=== PATIENT | male | born 1985 | race Caucasian/White ===

== ENCOUNTER 2018-06-15 16:07 | Emergency (ER) | payer BC ==
[2018-06-15] MEDS ORDERED: NA CHLORIDE 0.9% 1,000 ML ONE (16:46)
[2018-06-15] MEDS ORDERED: ONDANSETRON 4 MG/2 ML VIAL ONE (16:46)
[2018-06-15] MEDS ORDERED: NA CHLORIDE 0.9% 50 ML IV ONE (16:46)
[2018-06-15] MEDS ORDERED: DIPHENHYDRAMINE 50 MG/ML VIAL ONE (16:46)
[2018-06-15] MEDS ORDERED: METOCLOPRAMIDE 10 MG/2mL INJ ONE (16:46)
--- NOTE | 2018-06-15 16:57 | RAD REPORT ---
EXAM DESCRIPTION: CT - Head Brain Wo Cont - 06/15/2018 4:39 pm CLINICAL HISTORY: HEADACHE COMPARISON: No comparisons TECHNIQUE: All CT scans are performed using dose optimization technique as appropriate and may inclu de automated exposure control or mA/KV adjustment according to patient size. FINDINGS: No intracranial hemorrhage, hydrocephalus or extra-axial fluid collection.No areas of brai n edema or evidence of midline shift. The paranasal sinuses and mastoids are clear. The calvarium is intact. IMPRESSION: No acute intracranial abnormality.
[2018-06-15] MEDS ORDERED: KETOROLAC 30 MG/ML INJ ONE (17:18)
[2018-06-15] MEDS ORDERED: DEXAMETHASONE 10 MG/ML VIAL ONE (17:18)
--- NOTE | 2018-06-15 17:52 | ER ---
Nurse's Notes [facility] Name: Ten Oleary Age: 32 yrs Sex: Male : 1985 Arrival Date: 06/15/2018 Time: 16:08 Bed 24 Private MD: out of town, doctor Diagnosis: Headache Presentation: 06/15 16:08 Presenting complaint: Patient states: Migraine headache that started a few hours ago, sg reports sensitivity to light, has nausea as well, denies fever/diarrhea. Transition of care: patient was not received from another setting of care. Onset of symptoms was June 15, 2018. Risk Assessment: Do you want to hurt yourself or someone else? Patient reports no desire to harm self or others. Initial Sepsis Screen: Does the patient meet any 2 criteria? No. Patient's initial sepsis screen is negative. Does the patient have a suspected source of infection? No. Patient's initial sepsis screen is negative. Care prior to arrival: None. 16:08 Method Of Arrival: Ambulatory 16:08 Acuity: TERA 2 sg 16:13 Note at 2 pm today i was typing on the laptop computer at work and I had some vision sg changes in the left eye, it was like a bright light shining in the eye, super annoying but its much worse now. Triage Assessment: 16:54 Headache History:. General: Appears in no apparent distress. comfortable, Behavior is mg2 calm, cooperative. Pain: Complains of pain in head Also complains of nausea. Historical: - Allergies: 16:15 No Known Allergies; sg - Home Meds: 16:15 None [Active]; sg - PMHx: 16:15 None; sg - PSHx: 16:15 Right Hand Sx; sg - Immunization history:: Flu vaccine status is unknown. - Social history:: Smoking status: Patient/guardian denies using tobacco. - Ebola Screening: : No symptoms or risks identified at this time. Screenin:14 VAN Screening: Arm Drift: Patient shows no arm weakness. Patient is VAN negative. sg 16:39 Abuse screen: Denies threats or abuse. Denies injuries from another. Nutritional mg2 screening: No deficits noted. Tuberculosis screening: No symptoms or risk factors identified. Fall Risk IV access (20 points). Assessment: 16:37 General: Appears in no apparent distress. comfortable, Behavior is calm, cooperative. mg2 Pain: Complains of pain in head Pain does not radiate. Pain currently is 8 out of 10 on a pain scale. Quality of pain is described as aching, Pain began gradually, 2 hours ago. Neuro: Level of Consciousness is awake, alert, obeys commands, Oriented to person, place, time, situation. Neuro: Reports headache. Cardiovascular: Capillary refill < 3 seconds Patient's skin is warm and dry. Respiratory: Airway is patent Respiratory effort is even, unlabored, Respiratory pattern is regular, symmetrical. GI: Reports nausea. : No signs and/or symptoms were reported regarding the genitourinary system. EENT: No signs and/or symptoms were reported regarding the EENT system. Derm: Skin is intact, is healthy with good turgor, Skin is pink, warm \T\ dry. normal. Musculoskeletal: Circulation, motion, and sensation intact. Capillary refill < 3 seconds. 16:41 Reassessment: patient is back from ct scan. mg2 18:04 Reassessment: Patient denies pain at this time. Patient states feeling better. Patient mg2 states symptoms have improved. Vital Signs: 16:08 BP 135 / 83; Pulse 88; Resp 16; Pulse Ox 100% ; Pain 10/10; sg 17:30 BP 131 / 82; Pulse 88; Resp 18; Pulse Ox 100% on R/A; Pain 0/10; mg2 ED Course: 16:08 Patient arrived in ED. sg 16:08 Alexis Sampson PA is PHCP. cp 16:08 Foster Murguia MD is Attending Physician. cp 16:09 Triage completed. sg 16:09 Arm band placed on. sg 16:19 out of town, doctor is Private Physician. sg 16:20 Abe Morales, AILYN is Primary Nurse. mg2 16:[address] via wheelchair. ls3 16:39 CT completed. Patient tolerated procedure well. Patient moved back from CT. nj 16:40 CT Head Brain wo Cont In Process Unspecified. EDMS 16:40 Patient has correct armband on for positive identification. Pulse ox on. NIBP on. Door mg2 closed. Warm blanket given. 16:53 No provider procedures requiring assistance completed. Inserted saline lock: 20 gauge mg2 in right antecubital area, using aseptic technique. Blood collected. 18:04 IV discontinued, intact, bleeding controlled, No redness/swelling at site. Pressure mg2 dressing applied. Administered Medications: 16:50 Drug: Reglan 10 mg Route: IVP; Site: right antecubital; mg2 17:55 Follow up: Response: No adverse reaction; Marked relief of symptoms mg2 16:51 Drug: NS 0.9% 1000 ml Route: IV; Rate: 1 bolus; Site: right antecubital; mg2 17:55 Follow up: Response: No adverse reaction; Marked relief of symptoms mg2 18:05 Follow up: IV Status: Completed infusion mg2 16:51 Drug: Benadryl 25 mg Route: IVP; Site: right antecubital; mg2 17:55 Follow up: Response: No adverse reaction; Marked relief of symptoms mg2 16:51 Drug: Zofran 4 mg Route: IVP; Site: right antecubital; mg2 17:55 Follow up: Response: No adverse reaction; Marked relief of symptoms mg2 17:14 Drug: Decadron - Dexamethasone 10 mg Route: IVP; Site: right antecubital; mg2 17:55 Follow up: Response: No adverse reaction; Marked relief of symptoms mg2 17:14 Drug: TORadol - Ketorolac 15 mg Route: IVP; Site: right antecubital; mg2 17:54 Follow up: Response: No adverse reaction; Marked relief of symptoms mg2 Outcome: 17:51 Discharge ordered by . cp 18:04 Discharged to home ambulatory. mg2 18:04 Condition: stable 18:04 Discharge instructions given to patient, Instructed on discharge instructions, follow up and referral plans. medication usage, Demonstrated understanding of instructions, follow-up care, medications, Prescriptions given X 2. 18:05 Patient left the ED. mg2 Signatures: Dispatcher [employer] EDSamir Portillo RN RN sg Alexis Sampson PA PA cp Jordan, Nathan nj Gardose, Michele, RN RN mg2 Kirsty Siddiqui3 Corrections: (The following items were deleted from the chart) 16:18 16:08 Acuity: TERA 3 ana perez
--- NOTE | 2018-06-15 17:52 | EDPHYS ---
Physician Documentation [facility] Name: Ten Oleary Age: 32 yrs Sex: Male : 1985 Arrival Date: 06/15/2018 Time: 16:08 Bed 24 Private MD: out of town, doctor ED Physician Foster Murguia HPI: 06/15 16:35 This 32 yrs old Male presents to ER via Ambulatory with complaints of cp Headache < 24hrs Old, Vision Problem. 16:35 The patient complains of pain to the forehead. cp 16:35 Severity of symptoms: in the emergency department the pain a " 8" out of "10". cp 16:35 Onset: The symptoms/episode began/occurred today. Associated signs and symptoms: cp Pertinent positives: nausea, Photophobia. Headache History: Other denies history of migraines. Patient reports he was seated and working at computer when he noticed spots in vision of left eye, started having headache left front and side of head that has now progressed across front of head. Patient reports nausea and sensitivity to light. Historical: - Allergies: 16:15 No Known Allergies; sg - Home Meds: 16:15 None [Active]; sg - PMHx: 16:15 None; sg - PSHx: 16:15 Right Hand Sx; sg - Immunization history:: Flu vaccine status is unknown. - Social history:: Smoking status: Patient/guardian denies using tobacco. - Ebola Screening: : No symptoms or risks identified at this time. ROS: 16:45 Constitutional: Negative for body aches, chills, fever, poor PO intake. cp 16:45 Eyes: Positive for photophobia, Negative for discharge, redness, vision loss. cp 16:45 ENT: Negative for drainage from ear(s), ear pain, sore throat, difficulty swallowing, difficulty handling secretions. 16:45 Cardiovascular: Negative for chest pain, edema, palpitations. 16:45 Respiratory: Negative for cough, shortness of breath, wheezing. 16:45 Abdomen/GI: Positive for nausea, Negative for abdominal pain, vomiting, diarrhea, constipation. 16:45 Skin: Negative for rash. 16:45 Neuro: Positive for headache, Negative for altered mental status, dizziness, syncope, weakness. 16:45 All other systems are negative. Exam: 16:50 Constitutional: The patient appears in no acute distress, alert, awake, non-toxic, well cp developed, well nourished, uncomfortable. 16:50 Head/Face: Normocephalic, atraumatic. cp 16:50 Eyes: Pupils equal round and reactive to light, extra-ocular motions intact. Lids and lashes normal. Conjunctiva and sclera are non-icteric and not injected. Cornea within normal limits. Periorbital areas with no swelling, redness, or edema. ENT: Nares patent. No nasal discharge, no septal abnormalities noted. Tympanic membranes are normal and external auditory canals are clear. Oropharynx with no redness, swelling, or masses, exudates, or evidence of obstruction, uvula midline. Mucous membranes moist. 16:50 Chest/axilla: Inspection: normal. 16:50 Cardiovascular: Rate: normal, Rhythm: regular, Edema: is not appreciated, JVD: is not appreciated. 16:50 Respiratory: the patient does not display signs of respiratory distress, Respirations: normal, no use of accessory muscles, no retractions, no splinting, no tachypnea, labored breathing, is not present, Breath sounds: are clear throughout, no decreased breath sounds, no stridor, no wheezing. 16:50 Abdomen/GI: Inspection: abdomen appears normal, Bowel sounds: active, all quadrants, Palpation: abdomen is soft and non-tender, in all quadrants. 16:50 Skin: no rash present. 16:50 Neuro: Orientation: to person, place \\T\\ time. Mentation: is normal, Cranial nerves: CN II- XII are normal as tested, Cerebellar function: Romberg testing is negative, normal finger to nose testing, heel to farias testing is normal, Motor: moves all fours, strength is normal. Vital Signs: 16:08 BP 135 / 83; Pulse 88; Resp 16; Pulse Ox 100% ; Pain 10/10; sg 17:30 BP 131 / 82; Pulse 88; Resp 18; Pulse Ox 100% on R/A; Pain 0/10; mg2 MDM: 16:08 Patient medically screened. cp 16:30 Differential diagnosis: cerebral vascular accident, hypertensive headache, meningitis, cp meningoencephalitis, migraine, sinusitis, subarachnoid bleed, subdural hematoma, tension headache. 17:40 Data reviewed: vital signs, nurses notes, radiologic studies, CT scan. ED course: VSS. Patient reports headache improved and is resting comfortably in exam room. 06/15 16:29 Order name: CT Head Brain wo Cont; Complete Time: 16:58 06/15 16:58 Interpretation: Report reviewed. 06/15 16:29 Order name: IV; Complete Time: 16:52 Administered Medications: 16:50 Drug: Reglan 10 mg Route: IVP; Site: right antecubital; mg2 17:55 Follow up: Response: No adverse reaction; Marked relief of symptoms mg2 16:51 Drug: NS 0.9% 1000 ml Route: IV; Rate: 1 bolus; Site: right antecubital; mg2 17:55 Follow up: Response: No adverse reaction; Marked relief of symptoms mg2 18:05 Follow up: IV Status: Completed infusion mg2 16:51 Drug: Benadryl 25 mg Route: IVP; Site: right antecubital; mg2 17:55 Follow up: Response: No adverse reaction; Marked relief of symptoms mg2 16:51 Drug: Zofran 4 mg Route: IVP; Site: right antecubital; mg2 17:55 Follow up: Response: No adverse reaction; Marked relief of symptoms mg2 17:14 Drug: Decadron - Dexamethasone 10 mg Route: IVP; Site: right antecubital; mg2 17:55 Follow up: Response: No adverse reaction; Marked relief of symptoms mg2 17:14 Drug: TORadol - Ketorolac 15 mg Route: IVP; Site: right antecubital; mg2 17:54 Follow up: Response: No adverse reaction; Marked relief of symptoms mg2 Disposition: 18:15 Chart complete. Disposition: 06/15/18 17:51 Discharged to Home. Impression: Headache. - Condition is Stable. - Discharge Instructions: General Headache Without Cause. - Prescriptions for Ibuprofen 800 mg Oral Tablet - take 1 tablet by ORAL route every 8 hours As needed take with food; 30 tablet. Zofran 4 mg Oral Tablet - take 1 tablet by ORAL route every 12 hours As needed; 20 tablet. - Medication Reconciliation Form, Thank You Letter, Antibiotic Education, Prescription Opioid Use form. - Follow up: Private Physician; When: 2 - 3 days; Reason: Recheck today's complaints. - Problem is new. - Symptoms have improved. Addendum: 06/18/2018 00:14 Co-signature as Attending Physician, Foster Murguia MD. g s Signatures: Dispatcher [employer] EDSamir Portillo RN RN sg Alexis Sampson, MARLENA PA cp Foster Murguia MD MD Abe Morales RN RN mg2 Corrections: (The following items were deleted from the chart) 06/15 18:05 17:51 06/15/2018 17:51 Discharged to Home. Impression: Headache. Condition is Stable. mg2 Forms are Medication Reconciliation Form, Thank You Letter, Antibiotic Education, Prescription Opioid Use. Follow up: Private Physician; When: 2 - 3 days; Reason: Recheck today's complaints. Problem is new. Symptoms have improved. cp
== END 2018-06-15 18:05 | disposition home or self-care (01) ==
LOC: ER 16:07
DX: R51 Headache (principal)
CPT/HCPCS: 70450; 96361; 96374; 96375; 99284; J1100; J2405; J2765; J7030